=== PATIENT | male | born 1985 | race Caucasian/White ===

== ENCOUNTER 2021-08-07 23:12 | Emergency (ER) | payer OTHER, SELFPAY ==
--- NOTE | ~2021-08-07 | XR_ITS ---
EXAMINATION: XR chest 1V portable INDICATION: Cough TECHNIQUE: Portable AP chest at 0049 hours COMPARISON: None available FINDINGS: There are patchy bilateral airspace opacities. No pleural effusion or pneumothorax is ident ified. The cardiomediastinal silhouette is normal. The visualized osseous structures are unremarkable . IMPRESSION: 1. Patchy bilateral airspace opacities, likely pneumonia. Reviewed, dictated and finalized at location A. AL CONTROL OFFICER
--- NOTE | ~2021-08-07 | CT_ITS ---
EXAMINATION: CTA chest PE abdomen pel DATE: 08/08/2021 03:07 INDICATION: Shortness of breath, elevated lipase TECHNIQUE: Computed tomography angiography (CTA) of the chest was performed with 100 mL Omnipaque-350 intravenous contrast timed to evaluate the pulmonary arteries. Subsequent postcontrast images of the abdomen and pelvis are obtained. Coronal maximum intensity projection 3D-reconstructions were create d by the technologist. The dose-length product (DLP) was 2594.47 mGy-cm. Automated exposure control a nd iterative reconstruction technique were employed. COMPARISON: None. FINDINGS: CTA CHEST: The pulmonary arteries are well-opacified. No pulmonary embolism is identified. Patchy gr oundglass opacities are present throughout the heart size is normal. There are no pathologically enla rged thoracic lymph nodes. Mild bilateral gynecomastia is noted. There is mild thoracic spondylosis. ABDOMEN/PELVIS CT: The liver, spleen, pancreas, gallbladder, and adrenal glands are normal. The kidne ys are unremarkable. No pathologically enlarged abdominal or pelvic lymph nodes are identified. There is no free intraperitoneal gas or evidence of bowel obstruction. IMPRESSION: 1. No pulmonary embolus identified. 2. Patchy groundglass opacities throughout the lungs in the pattern consistent with COVID 19 pneumoni a. 3. No acute abnormality of the abdomen or pelvis. Reviewed, dictated and finalized at location A. SUPPORT ANALYST IMPRESSION: 1. No pulmonary embolus identified. 2. Patchy groundglass opacities throughout the lungs in the pattern consistent with COVID 19 pneumonia. 3. No acute abnormality of the abdomen or pelvis.
[2021-08-07 23:16] VITALS: BP 150/100; PULSE 111; RESP 20; TEMP 36.4; O2SAT 93
[2021-08-08 00:36] VITALS: BP 148/87; PULSE 108; RESP 18; O2SAT 94
--- NOTE | 2021-08-08 01:04 | ECG_ITS ---
Measurements Intervals [place] Rate: 109 P: 37 FL: 138 QRS: 120 QRSD: 90 T: -6 QT: 305 QTc: 412 Interpretive Statements SINUS TACHYCARDIA POOR R WAVE PROGRESSION, ANTERIOR LEADS MINIMAL Q WAVES- INFERIOR LEADS BASELINE ARTIFACT- II, III, AVF, V3-V6 ABNORMAL ECG Electronically Signed On 08-08-2021 8:13:02 HISTOPATH TECH by Mando Carrillo D.O.
--- NOTE | 2021-08-08 01:08 | ED.URI ---
HPI - URI/Sore Throat General Chief Complaint: Upper Respiratory Infection Stated Complaint: cough Time Seen by Provider: 08/08/21 00:52 Source: patient Mode of arrival: ambulatory Limitations: other (patient seems to have some cognitive impairment) History of Present Illness HPI Narrative: This is a 36 year old male who presents for evaluation of nausea and vomiting. He states he has not felt well for 10 days. He has cough and headache with coughing. He is unsure of fever, chills. He has intermittent shortness of breath and he only has chest pain with coughing. His main reason for coming to ER is for nausea and vomiting for 3 days. He states every time he tries to drink something it comes back up. He denies abdominal pain. He has not eaten in 3 days. Denies similar complaints. He states he does not have PCP and he has not seen a provider in a long time. Denies any medical problems. Related Data Allergies Allergy/AdvReac Type Severity Reaction Status Date / Time No Known Allergies Allergy Verified 08/08/21 01:23 Review of Systems Review of Systems: All systems reviewed & are unremarkable except as noted in HPI and below Constitutional: Constitutional: Denies chills and Denies fever(s) ENT: Reports nasal congestion and Denies sore throat Cardiovascular: Cardiovascular: Denies chest pain and Denies radiating jaw, neck or arm pain Respiratory: Respiratory: Reports cough and Reports dyspnea Gastrointestinal: Gastrointestinal: Denies abdominal pain, Reports nausea and Reports vomiting Neurologic: Reports headache(s) (when he coughs) PMFSH Past Medical History Medical History (Updated 08/08/21 @ 05:28 by Allyson Mendoza MD) Patient denies medical problems Surgical History Surgical History (Updated 08/08/21 @ 01:12 by Allyson Mendoza MD) No pertinent past surgical history Social History Social History (Updated 08/08/21 @ 01:12 by Allyson Mendoza MD) Smoking status: Never smoker Alcohol intake: never Substance use: never Exam Const: General: alert and diaphoretic Nutritional Appearance: obese Orientation/consciousness: patient oriented x3 Other: poor hygiene HENMT: Head: normocephalic and atraumatic Ears: TM's normal bilaterally Face and sinus: face symmetric Mouth: Yes other (lip ulceration) Throat: posterior oropharynx normal, tonsils normal and uvula midline Eyes: Pupils: Equal, round and reactive pupils present EOM: EOMs intact bilaterally Chest: Chest palpation & inspection: normal inspection of the chest Resp: Effort & Inspection: normal respiratory effort and no retractions Auscultation: clear to auscultation bilaterally Cardio: Rate: regular rate Rhythm: regular rhythm Heart sounds: no murmurs GI: GI Palp: Yes Soft to palpation, No Tenderness to palpation present (GI) and No Guarding due to palpation present (GI) Auscultation: normal bowel sounds Back/Spine/Pelvis: Back: no CVA tenderness Skin: General skin exam: normal color Rashes: no rashes Neuro: General: patient oriented x3, moves all extremities and CN's II-XI intact bilaterally Psych: Mental Status: mental status grossly normal Affect: normal affect Course Reevaluation(s) Reevaluation #1: PAtient able to tolerate PO. He is drinking water and eating delia crackers no vomiting. He is still complaining about cough. He is no respiratory distress. I ambulated patient around hallway with pulse oximeter. His oxygen saturation stayed above 93% on room. I discussed he will be treatment for pneumonia and tested for covid. Date: 08/08/21 Time: 05:22 Vital Signs Vital signs: Vital Signs Temperature 97.5 F L 08/07/21 23:16 Pulse Rate 111 H 08/07/21 23:16 Respiratory Rate 20 08/07/21 23:16 Blood Pressure 150/100 H 08/07/21 23:16 Pulse Oximetry 93 08/07/21 23:16 Temperature 97.5 F L 08/07/21 23:16 Pulse Rate 94 08/08/21 05:57 Respiratory Rate 20 08/08/21 05:57 Blood Pres
[2021-08-08 01:22] VITALS: O2SAT 97
[2021-08-08 01:23] LABS: Glucose Point of Care 134 mg/dl (65-105)
[2021-08-08 01:29] LABS: Alveolar/Arterial O2 Gradient 47.8 mmHg; Base Excess ABG 0.3 mEq/l (+/-2.0); Carboxyhemoglobin 0.3 % THb (0-2.0); Fractional Inspired Oxygen 21 %; HCO3 ABG 23.6 mEq/l (22.0-26.0); Methemoglobin ABG 0.4 %THb (0-1.5); Modified Allen's Test Pass; Oxygen Content ABG 22.2 %vol (16.0-22.0); Oxygen Saturation ABG 92.4 % (95.0-100.0); Oxyhemoglobin 91.6 % THb (90.0-100.0); PCO2 ABG 34.8 mmHg (35.0-45.0); PO2 ABG 60.3 mmHg (80.0-100.0); PO2 FiO2 Ratio Arterial Blood 2.87 %; Reduced Hemoglobin 7.7 %THb (0-5.0); Site Drawn RIGHT RADIAL; Total Hemoglobin 17.3 g/dL (12.0-18.0); pH ABG 7.449 (7.350-7.450)
[2021-08-08 01:30] LABS: Device ROOM AIR
[2021-08-08] MEDS: LACTATED RINGERS 1,000 ML 999 ML IV CONT (01:33)
[2021-08-08] MEDS: ONDANSETRON INJ 4 MG/2 ML VIAL IV PUSH (01:33)
[2021-08-08 01:34] LABS: Basophils Percent Auto 0.3 % (0.2-1.2); Eosinophils Percent Auto 0.2 % (0-4.4); Hematocrit 46.2 % (42.0-52.0); Hemoglobin 16.4 g/dL (14.0-18.0); Immature Granulocyte Absolute 0.03 K/mm3 (0.00-0.031); Immature Granulocyte Percent A 0.5 % (0-0.5); Lymphocytes Absolute Auto 1.19 K/mm3 (0.9-3.2); Lymphocytes Percent Auto 20.8 % (18.3-44.2); Mean Corpuscular HGB Conc 35.5 g/dl (32-36); Mean Corpuscular Hemoglobin 30.7 pg (26-34); Mean Corpuscular Volume 86.4 fl (80-100); Mean Platelet Volume 10.9 fl (7.4-10.4); Monocytes Absolute Auto 0.9 K/mm3 (0.1-0.6); Monocytes Percent Auto 16.3 % (2.6-8.5); Neutrophils Absolute Auto 3.5 K/mm3 (1.3-6.7); Neutrophils Percent Auto 61.9 % (45.5-73.1); Platelet Count Result 190 k/mm3 (150-375); Red Blood Count 5.35 M/mm3 (4.6-6.20); Red Cell Distribution Width 13.1 % (11.5-14.5); White Blood Count 5.7 K/mm3 (4.5-10.0)
[2021-08-08 01:39] VITALS: BP 144/89; PULSE 109; RESP 19; O2SAT 93
[2021-08-08 01:52] LABS: Add Urine Microscopic? YES; Appearance Urine Cloudy (Clear); Bilirubin Urine Negative (Negative); Blood Urine 1+ (Negative); Color Urine Amber (Yellow); Glucose Urine UA Negative (Negative); Ketones Urine Trace mg/dL (Negative); Leukocyte Esterase Ur Negative LEU/UL (Negative); Mucus Urine Heavy /lpf; Nitrate Urine Negative (Negative); Protein Urine 2+ mg/dL (Negative); Specific Grav Ur 1.026 (1.001-1.035); Squamous Epithelial Cell Urine Occasional /hpf (Few); White Blood Cell Casts Urine Present /lpf
[2021-08-08 01:59] LABS: Lactic Acid Reflex 1.8 mmol/L (0.7-2.1)
[2021-08-08 02:07] LABS: Prothrombin Time 13.2 Seconds (11.1-14.7)
[2021-08-08 02:08] LABS: Partial Thromboplastin Time 25.9 SECONDS (22.3-36.8)
[2021-08-08 02:10] LABS: D Dimer 1.16 ug/mL (<0.48)
[2021-08-08 02:20] LABS: Troponin I < 0.012 ng/mL (0.000-0.034)
[2021-08-08 02:26] LABS: Alanine Aminotransferase 96 U/L (4-50); Albumin Level 4.1 g/dL (3.5-5.1); Alkaline Phosphatase 45 U/L (38-126); Anion Gap 10 mmol/L (8-16); Aspartate Amino Transferase 192 U/L (17-59); Bilirubin,Total 1.1 mg/dL (0.2-1.3); Blood Urea Nitrogen 22 mg/dL (9-20); Calcium 8.2 mg/dL (8.4-10.2); Carbon Dioxide 27 mmol/L (22-30); Chloride 95 mmol/L (98-107); Estimated Glomerular Filt Rate > 60; Glucose 122 mg/dL (65-110); Lipase 400 U/L (23-300); Potassium 3.9 mmol/L (3.4-5.0); Sodium 132 mmol/L (137-145)
[2021-08-08 04:21] VITALS: BP 122/70; PULSE 99; RESP 18; O2SAT 95
[2021-08-08 05:57] VITALS: BP 126/85; PULSE 94; RESP 20; O2SAT 95
--- NOTE | 2021-08-08 08:23 | PCCCNOTE ---
Addendum entered by Rosalina Salas RN 08/08/21 18:55: Late Entry: Spoke with Eva in [employer] and patient is active with [employer] [place], [place] [id number]. Called Bailee with ED Registration and she was able to locate and will add to system. Medications sent to [facility]. Called [facility] at [phone], per dermatology technician prescriptions received, and will be zero copay, they can be picked up in 30 minutes. Abeba [facility] Rep picked up medications. Cab voucher and medications given to [facility] ED Bedside RN. Original Note: Called to ED to help with transportation, spoke with patient, patient appears to have cognitive impairment. Asked who he has been living with and he says Fred. Asked about her mother and he says that she is in a correction but he doesn't know the name. Called to Jorge who is on the contact list, he states that patient is a friend of his sons and he does have a room there but he can not pick him up as he is disabled and does not drive or have a car. Confirmed with Jorge that patient does have a room and place to [facility]. Reassured Jorge that Ben would assist with transporatation. Patient is not eligible/active with Medicaid now but does appear that he had at one point. Left a message with [employer] to reach out to the patient about Medicaid.
[2021-08-08] MEDS: ALBUTEROL SULFATE (*SP) INHALER 2 PUFF INHALATION (08:27)
[2021-08-08 10:43] VITALS: BP 145/88; PULSE 87; RESP 18; O2SAT 100
[2021-08-08 19:26] LABS: SARS-CoV-2 RNA PCR Positive
== END 2021-08-08 10:44 | disposition home or self-care (01) ==
PROVIDERS: Emergency Provider General Practice
DX: U07.1 COVID-19 (principal); J12.82 Pneumonia due to coronavirus disease 2019
CPT/HCPCS: 36415; 36600; 71045; 71275; 74177; 80053; 81001; 82375; 82805; 82948; 83050; 83605; 83690; 83735; 84484; 85025; 85380; 85610; 85730; 87086; 87804; 93005; 96361; 96374; 99284; A9270; C9803; J2405; J7120; Q9967; U0003; U0005

== ENCOUNTER 2022-01-05 12:43 | Outpatient (CLI) | payer OTHER, SELFPAY ==
--- NOTE | ~2022-01-05 | US_ITS ---
US venous doppler [facility] DATE: 01/05/2022 14:11 INDICATION: History of deep venous thrombosis TECHNIQUE: Real-time and color flow imaging and Doppler analysis of the veins of the left lower extre mity COMPARISON: None FINDINGS: The left greater saphenous vein is patent. There is spontaneous and phasic flow and normal augmentation and color flow signal and normal compression of the deep veins of the left leg. IMPRESSION: No evidence of deep venous thrombosis of left leg Reviewed, dictated and finalized at Location A. Reviewed, dictated and finalized at location B.
== END 2022-01-05 12:44 | disposition home or self-care (01) ==
PROVIDERS: Visit Provider Internal Medicine Hematology & Oncology
DX: I82.4Y2 Acute embolism and thrombosis of unspecified deep veins of left proximal lower extremity (principal)
CPT/HCPCS: 93971

== ENCOUNTER 2022-04-24 10:25 | Outpatient (CLI) | payer OTHER, SELFPAY | END 2022-04-24 10:26 | disposition home or self-care (01) | PROVIDERS: PCP Internal Medicine Infectious Disease; Visit Provider Internal Medicine Hematology & Oncology | DX: I82.4Y2 Acute embolism and thrombosis of unspecified deep veins of left proximal lower extremity (principal) | CPT/HCPCS: 36415; 85303; 85306 ==

== ENCOUNTER 2025-07-13 15:34 | Outpatient (CLI) | payer OTHER, SELFPAY ==
--- NOTE | ~2025-07-13 | US_ITS ---
EXAMINATION: US venous doppler [facility] DATE: 07/13/2025 16:23 INDICATION: History of DVT swelling TECHNIQUE: Grayscale ultrasound images without and with compression and Doppler ultrasound images of the bilateral lower extremity veins were obtained. COMPARISON: None. FINDINGS: The visualized portions of right common femoral vein, profunda (deep) femoral vein, femoral vein, popliteal vein, peroneal veins, posterior tibial veins, and greater saphenous vein outflow are patent. The visualized portions of left common femoral vein, profunda femoral vein, femoral vein, popliteal vein, peroneal veins, posterior tibial veins, and greater saphenous vein outflow are patent. IMPRESSION: 1. No deep venous thrombosis. Reviewed, dictated and finalized at location A. [employer]
--- OUTSIDE RECORDS SUMMARY | 2025-07-13 19:52 | XMS_ITS | Clinical Summary ---
Author Organization [facility] Ashley Castañedaange Address [address] [place] [address] [place] [address] Care Team Providers Care Cross Country/Track And Field Coach Name Role Phone Samantha Cooper MD Primary Care Provider [phone] Allergies No known active allergies Medications lisinopril-hydr oCHLOROthiazide (ZESTORETIC) 10-12.5 mg tablet TAKE 1 TABLET BY MOUTH EVERY DAY DIRECTED 09/03/2021 Active rivaroxaban (Xarelto) 10 mg Tablet TAKE 1 TABLET BY MOUTH DAILY WITH SUPPER 90 Tablet 3 03/20/2025 Active Active Problems Problem Noted Date Diagnosed Date Acute deep vein thrombosis ( DVT) of proximal vein of left lower extremity 10/31/2021 Encounters Date Type Department Care Team Description 07/03/2025 External Device Data [facility] ABSTRACTION Provider, Abstract 06/27/2025 External Device Data [facility]STRACTION Provider, Abstract 06/26/2025 External Device Data [facility]STRACTION Provider, Abstract 06/19/2025 External Device Data [facility] ABSTRACTION Provider, Abstract from Last 3 Months Family History Relation Name Status Comments Father Mother Alive Social History Tobacco Use Types Packs/Day Years Used Date Smoking Tobacco: Never Smokeless Tobacco: Never Tobacco Cessation:Counseling Given: Not Answered Alcohol Use Standard Drinks/Week Comments Never 0 (1 standard drink = 0.6 oz pur e alcohol) Sex and Gender Information Value Date Recorded Sex Assigned at Not on file Legal Sex Male 9:37 AM ARTILLERY OFFICER Gender Identity Not on file Sexual Orientation Not on file Last Filed Vital Signs Vital Sign Reading Time Taken Comments Blood Pressure 136/82 10/02/2024 1:06 PM ARTILLERY OFFICER Pulse 79 10/02/2024 1:06 PM ARTILLERY OFFICER Temperature 36.2 C (97.1 F) 10/02/2024 1:06 PM ARTILLERY OFFICER Respiratory Rate 18 10/02/2024 1:06 PM ARTILLERY OFFICER Oxygen Saturation 96% 10/02/2024 1:06 PM ARTILLERY OFFICER Inhaled Oxygen Concentration - - Weight 134.7 kg (297 lb) 10/02/2024 1:06 PM ARTILLERY OFFICER Height 175.3 cm (5' 9) 04/30/2022 1:23 PM CDT Body Mass Index 43.86 04/30/2022 1:23 PM CDT Plan of Treatment Upcoming Encounters Date Type Department Care Team (Late st Contact Info) Description 10/02/2025 1:00 PM ARTILLERY OFFICER Office Visit [facility] Oncology and Hematology - Ben [address] [facility] [address] [place] [address] Amrik Littlejohn MD [address] [facility] [email or web address] [place] [address] Health Maintenance Due Date Last Done Comments Pre-Diabetes and Diabetes Screening 1983 DTAP/TDAP/TD VACCINES (1 - Tdap) 2002 HEPATITIS B VACCINES (1 of 3 - 19+ 3-dose series) 2002 HPV VACCINES (1 - 3-dose SCDM series) 2010 INFLUENZA VACCINE (#1) 2025 09/03/2021, 2018 Insurance [place] [employer] Care Teams Cross Country/Track And Field Coach Relationship Specialty Start Date End Date Samantha Cooper MD [address] [place] [address] PCP - General Internal Medicine 10/31/21
== END 2025-07-13 15:35 | disposition home or self-care (01) ==
LOC: ANHIMG 15:36
PROVIDERS: PCP Internal Medicine Infectious Disease; Visit Provider Internal Medicine Infectious Disease
DX: M79.605 Pain in left leg (principal); Z86.718 Personal history of other venous thrombosis and embolism
CPT/HCPCS: 93970